=== PATIENT | male | born 1990 | race African-American/Black ===

== ENCOUNTER 2020-02-11 09:49 | Emergency (ER) | payer MEDICAID ==
[~2020-02-11] VITALS: Ht 175.3 cm; Wt 81.8 kg
[2020-02-11 10:35] VITALS: BP 144/96
== END 2020-02-11 10:38 | disposition home or self-care (01) ==
LOC: ER 09:50
DX: M79.10 Myalgia, unspecified site (principal)
CPT/HCPCS: 99281

== ENCOUNTER 2021-12-31 19:59 | Emergency (ER) | payer BC, MEDICAID, OTHER ==
[~2021-12-31] VITALS: Ht 172.7 cm; Wt 81.8 kg
[2021-12-31 20:04] VITALS: BP 117/72
[2021-12-31] MEDS ORDERED: ibuprofen tablet 400 MG TABLET PO ONE (22:45)
[2021-12-31] MEDS ORDERED: HYDR-3965 PO (22:46)
--- NOTE | 2021-12-31 22:52 | NUR ---
PO MED GIVEN
== END 2021-12-31 23:06 | disposition home or self-care (01) ==
LOC: ER 19:59
DX: S62.613A Displaced fracture of proximal phalanx of left middle finger, initial encounter for closed fracture (principal); S63.253A Unspecified dislocation of left middle finger, initial encounter; M79.645 Pain in left finger(s); Z79.899 Other long term (current) drug therapy; X58.XXXA Exposure to other specified factors, initial encounter; Y93.89 Activity, other specified; Y92.89 Other specified places as the place of occurrence of the external cause; Y99.8 Other external cause status
CPT/HCPCS: 26725; 73120; 73140; 99284